=== PATIENT | female | born 1950 | race Caucasian/White ===

== ENCOUNTER 2017-10-04 14:56 | Outpatient (CLI) | payer MEDICARE, BC ==
--- NOTE | 2017-10-04 17:37 | RAD ---
RADIOGRAPH RIGHT FOOT 3 VIEWS: 10/04/17 HISTORY: 67-year-old female with right toe pain. FINDINGS: Mild bony hypertrophy and minimal joint space narrowing at the first MTP. Tiny exostosis at lateral a spect of fifth proximal phalangeal head/neck. The rest of the joints appear normal. No periosteal john vation, permeative lesion, fracture, or dislocation. IMPRESSION: 1. 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 2. Otherwise negative. POS: HAYLIE
== END 2017-10-04 14:57 | disposition home or self-care (01) ==
LOC: MADRAD 14:56
PROVIDERS: ATTEND Family Medicine
DX: M79.674 Pain in right toe(s) (principal); M19.071 Primary osteoarthritis, right ankle and foot
CPT/HCPCS: 36415; 84550

== ENCOUNTER 2017-10-08 14:34 | Outpatient (CLI) | payer MEDICARE, BC ==
--- NOTE | 2017-10-08 15:38 | RAD ---
RIGHT HIP RADIOGRAPHS TWO VIEWS: Date: 10-08-17 Provided Clinical History: Right hip pain. FINDINGS: There is no evidence for fracture or other acute osseous abnormality. Right hip joint space appears m aintained. Alignment appears anatomic. No lytic or blastic lesions are seen. IMPRESSION: No evidence for acute osseous abnormality or significant arthropathy. POS: OFF
--- NOTE | 2017-10-08 15:39 | RAD ---
LEFT HIP RADIOGRAPHS TWO VIEWS: Date: 10-08-17 Provided Clinical History: Left hip pain. FINDINGS: There is no evidence for fracture or other acute osseous abnormality. Alignment appears anatomic. Lef t hip joint space appears preserved. Degenerative changes are seen at the symphysis pubis. IMPRESSION: No evidence for an acute osseous abnormality or significant arthropathy involving the left hip. POS: OFF
== END 2017-10-08 14:35 | disposition home or self-care (01) ==
LOC: MADRAD 14:34
PROVIDERS: ATTEND Family Medicine
DX: M16.0 Bilateral primary osteoarthritis of hip (principal)